=== PATIENT | male | born 2000 ===

== ENCOUNTER 2021-05-22 10:43 | Outpatient (REF) | payer BC, SELFPAY | END 2021-05-22 10:44 | disposition home or self-care (01) | LOC: HO.LAB 10:43 | PROVIDERS: Visit Provider Hospitalist | DX: Z20.822 Contact with and (suspected) exposure to COVID-19 (principal); B97.89 Other viral agents as the cause of diseases classified elsewhere; J02.8 Acute pharyngitis due to other specified organisms | CPT/HCPCS: U0003; U0005 ==